=== PATIENT | female | born 1970 | race Two or more races ===

== ENCOUNTER 2022-06-02 11:15 | Outpatient (REF) | payer OTHER, SELFPAY ==
--- NOTE | ~2022-06-02 | MR_ITS ---
EXAMINATION: MR BRAIN WITH AND WITHOUT CONTRAST CLINICAL INFORMATION: Headache, breast cancer COMPARISON: None. TECHNIQUE: MRI of the brain was obtained using routine sequences before and following administration of intravenous contrast. A total of 10 mL of Gadavist was administered intravenously. FINDINGS: Mildly motion degraded examination. No acute infarct. No acute intracranial hemorrhage or extra-axial fluid collection. The ventricles and sulci are normal in size and configuration without significant volume loss or hydrocephalus. Region of cystic encephalomalacia and marginal gliosis within the inferior paramedian right frontal lobe involving the right gyrus rectus and orbitofrontal gyri extending to the anterior skull base, probably sequelae of prior traumatic injury. No abnormal intraparenchymal or leptomeningeal enhancement. No significant mass effect or herniation pattern. Normal enhancement of the dural venous sinuses. Normal appearance of the intracranial arterial flow voids. Normal appearance of the midline structures. The orbits are grossly unremarkable. Mucous retention cysts in the right greater than left maxillary sinuses. The mastoid air cells are well aerated, noting a single opacified left mastoid air cell. Normal marrow signal. MR/MR head/brain wo/w con IMPRESSION: Cystic encephalomalacia and marginal gliosis within the inferior paramedian right frontal lobe involving the right gyrus rectus and orbitofrontal gyri extending to the anterior skull base, probably sequelae of prior traumatic injury. No acute intracranial abnormality or abnormal intracranial enhancement.
== END 2022-06-02 11:16 | disposition home or self-care (01) ==
LOC: HO.MRI 11:15
PROVIDERS: PCP Internal Medicine; Visit Provider Psychiatry & Neurology Neurology
DX: C50.919 Malignant neoplasm of unspecified site of unspecified female breast (principal)
CPT/HCPCS: 70553; A9585